=== PATIENT | male | born 1960 | race Caucasian/White ===

== ENCOUNTER → 2019-04-15 15:52 | Outpatient (BNVA) | payer BC, OTHER, SELFPAY | PROVIDERS: Family Provider Family Medicine; PCP Family Medicine; Visit Provider Family Medicine | DX: I10 Essential (primary) hypertension (principal); E11.9 Type 2 diabetes mellitus without complications | CPT/HCPCS: 83036 ==

== ENCOUNTER → 2019-11-21 11:23 | Outpatient (BNVA) | payer OTHER, BC, SELFPAY | PROVIDERS: Family Provider Family Medicine; PCP Family Medicine; Visit Provider Nurse Practitioner | DX: S42.212D Unspecified displaced fracture of surgical neck of left humerus, subsequent encounter for fracture with routine healing (principal); X58.XXXD Exposure to other specified factors, subsequent encounter | CPT/HCPCS: 73030 ==

== ENCOUNTER 2019-11-21 12:47 | Outpatient (CLI) | payer OTHER, SELFPAY ==
--- NOTE | 2019-11-21 12:50 | XR_ITS ---
WS: [id number] EXAM: LEFT SHOULDER: 3 VIEWS DATE OF EXAMINATION: 11/21/2019, 1259 COMPARISON: Left shoulder films exam from earlier on the same date. HISTORY: 59 years old with fracture follow-up. FINDINGS: Again demonstrated are changes of open reduction internal fixation of a left humeral surgical neck fr acture. Lateral side plate and multiple screws are demonstrated. The fracture appears healed. Bony fr agments are seen along the inferior aspect of the glenohumeral joint felt to represent changes relate d to a prior inferior glenoid rim fracture. Slight arthritis in the AC joint. No dislocation. No soft tissue abnormality is demonstrated. XR/XR shoulder LT min 2V* [id number] IMPRESSION: Healed left humeral surgical neck fracture. Bony fragments below the inferior g lenoid suggesting a bony fracture of the inferior glenoid rim. Arthritis in the AC joint.
== END 2019-11-21 12:48 | disposition home or self-care (01) ==
LOC: RAD 12:49
PROVIDERS: PCP Family Medicine; Visit Provider Nurse Practitioner
DX: M25.512 Pain in left shoulder (principal); M19.012 Primary osteoarthritis, left shoulder
CPT/HCPCS: 73030

== ENCOUNTER → 2019-12-16 15:00 | Outpatient (BNVA) | payer BC, OTHER, SELFPAY | PROVIDERS: PCP Family Medicine; Visit Provider Nurse Practitioner Family | DX: I10 Essential (primary) hypertension (principal); E11.9 Type 2 diabetes mellitus without complications; Z68.36 Body mass index [BMI] 36.0-36.9, adult; R03.0 Elevated blood-pressure reading, without diagnosis of hypertension | CPT/HCPCS: 80053; 80061; 83036; 84439; 84443; 85025 ==

== ENCOUNTER → 2020-06-18 15:44 | Outpatient (BNVA) | payer BC, OTHER, SELFPAY | PROVIDERS: PCP Family Medicine; Visit Provider Nurse Practitioner Family | DX: R30.0 Dysuria (principal); R10.9 Unspecified abdominal pain | CPT/HCPCS: 81000 ==

== ENCOUNTER 2020-07-05 13:53 | Outpatient (CLI) | payer BC, OTHER, SELFPAY ==
--- NOTE | 2020-07-05 14:45 | CT_ITS ---
WS: [id number] CT ABDOMEN PELVIS TECHNIQUE: Noncontrast CT of the abdomen and pelvis with coronal and sagittal reformatted images. CLINICAL INFORMATION: R10.9 - Unspecified abdominal pain COMPARISON: None. DLP: 1492.[address] scans at [facility] use at least one of these dose optimization techniques: automat ed exposure control; mA and/or kV adjustment per patient size (includes targeted exams where dose is matched to clinical indication); or iterative reconstruction. FINDINGS: Noncontrast liver is unremarkable. Noncontrast spleen is normal. Normal pancreas. Normal GE junction. Adrenal glands are normal. No hydronephrosis in either kidney. No obstructing renal or ureteral calcu li. Calcified prostate measuring 3.9 x 4.2 CM. Normal caliber abdominal aorta. Tiny fat-containing um bilical hernia. Normal Sigmoid colon. No evidence of high-grade small or large bowel obstruction. Lung bases are well aerated. Lumbar curve. CT/CT kidney stone 29594 IMPRESSION: 1. No hydronephrosis in either kidney. No obstructing renal or ureteral calcul i. 2. No abdominal or pelvic lymphadenopathy. 3. Tiny fat-containing umbilical hernia. 4. Calcified enlarged prostate measuring 4.2 x 3.9 cm. Recommend correlation P SA.
== END 2020-07-05 13:54 | disposition home or self-care (01) ==
PROVIDERS: PCP Family Medicine; Visit Provider Nurse Practitioner Family
DX: R10.9 Unspecified abdominal pain (principal); R31.9 Hematuria, unspecified; K42.9 Umbilical hernia without obstruction or gangrene; N40.0 Benign prostatic hyperplasia without lower urinary tract symptoms
CPT/HCPCS: 74176; 81000

== ENCOUNTER → 2020-07-11 15:46 | Outpatient (BNVA) | payer BC, OTHER, SELFPAY | PROVIDERS: PCP Family Medicine; Visit Provider Nurse Practitioner Family | DX: R10.9 Unspecified abdominal pain (principal); R31.9 Hematuria, unspecified; N40.0 Benign prostatic hyperplasia without lower urinary tract symptoms | CPT/HCPCS: 82565; 84153; 84520 ==

== ENCOUNTER → 2020-09-11 09:50 | Outpatient (BNVA) | payer BC, OTHER, SELFPAY | PROVIDERS: PCP Family Medicine; Visit Provider Nurse Practitioner Family | DX: E11.9 Type 2 diabetes mellitus without complications (principal) | CPT/HCPCS: 83036 ==

== ENCOUNTER → 2020-12-14 11:26 | Outpatient (BNVA) | payer BC, OTHER, SELFPAY | PROVIDERS: PCP Family Medicine; Visit Provider Nurse Practitioner Family | DX: E11.9 Type 2 diabetes mellitus without complications (principal); I10 Essential (primary) hypertension; R10.9 Unspecified abdominal pain; R31.9 Hematuria, unspecified | CPT/HCPCS: 80053; 80061; 81000; 83036; 84439; 84443; 85025 ==

== ENCOUNTER → 2021-01-15 09:40 | Outpatient (BNVA) | payer BC, OTHER, SELFPAY | PROVIDERS: PCP Family Medicine; Visit Provider Urology | DX: R31.9 Hematuria, unspecified (principal) | CPT/HCPCS: 81003 ==

== ENCOUNTER → 2021-04-20 15:10 | Outpatient (BNVA) | payer BC, OTHER, SELFPAY | PROVIDERS: PCP Family Medicine; Visit Provider Nurse Practitioner | DX: Z20.822 Contact with and (suspected) exposure to COVID-19 (principal) | CPT/HCPCS: 87635 ==

== ENCOUNTER → 2021-04-24 10:52 | Outpatient (BNVA) | payer BC, OTHER, SELFPAY | PROVIDERS: PCP Family Medicine; Visit Provider Nurse Practitioner | DX: J20.9 Acute bronchitis, unspecified (principal); Z20.822 Contact with and (suspected) exposure to COVID-19 | CPT/HCPCS: 87635 ==

== ENCOUNTER → 2022-02-12 16:41 | Outpatient (BNVA) | payer BC, OTHER, SELFPAY | PROVIDERS: PCP Family Medicine; Visit Provider Nurse Practitioner Family | DX: R60.9 Edema, unspecified (principal); E11.9 Type 2 diabetes mellitus without complications | CPT/HCPCS: 80053; 83036 ==

== ENCOUNTER → 2022-03-12 16:28 | Outpatient (BNVA) | payer BC, OTHER, SELFPAY | PROVIDERS: PCP Family Medicine; Visit Provider Nurse Practitioner Family | DX: Z79.899 Other long term (current) drug therapy (principal); M25.561 Pain in right knee; G89.29 Other chronic pain | CPT/HCPCS: 80048 ==

== ENCOUNTER → 2022-04-01 15:45 | Outpatient (BNVA) | payer BC, OTHER, SELFPAY | PROVIDERS: PCP Family Medicine; Visit Provider Nurse Practitioner Family | DX: R79.89 Other specified abnormal findings of blood chemistry (principal) | CPT/HCPCS: 80053 ==

== ENCOUNTER → 2022-04-11 14:58 | Outpatient (BNVA) | payer BC, OTHER, SELFPAY | PROVIDERS: PCP Family Medicine; Referring Provider Nurse Practitioner Family; Visit Provider Student in an Organized Health Care Education/Training Program | DX: M17.11 Unilateral primary osteoarthritis, right knee (principal) | CPT/HCPCS: 73560; 73565 ==

== ENCOUNTER → 2022-04-18 15:00 | Outpatient (BNVA) | payer BC, OTHER, SELFPAY | PROVIDERS: PCP Family Medicine; Visit Provider Nurse Practitioner Family | DX: R79.9 Abnormal finding of blood chemistry, unspecified (principal) | CPT/HCPCS: 80048 ==

== ENCOUNTER → 2022-05-09 11:38 | Outpatient (BNVA) | payer BC, OTHER, SELFPAY | PROVIDERS: PCP Family Medicine; Visit Provider Nurse Practitioner Family | DX: I10 Essential (primary) hypertension (principal); E11.9 Type 2 diabetes mellitus without complications; R05.9 Cough, unspecified; Z68.35 Body mass index [BMI] 35.0-35.9, adult | CPT/HCPCS: 80053; 80061; 83036; 84443 ==

== ENCOUNTER → 2022-08-15 08:54 | Outpatient (BNVA) | payer BC, OTHER, SELFPAY | PROVIDERS: PCP Family Medicine; Visit Provider Nurse Practitioner Family | DX: E11.9 Type 2 diabetes mellitus without complications (principal); Z68.33 Body mass index [BMI] 33.0-33.9, adult; I10 Essential (primary) hypertension | CPT/HCPCS: 83036 ==

== ENCOUNTER → 2022-11-14 09:38 | Outpatient (BNVA) | payer BC, OTHER, SELFPAY | PROVIDERS: PCP Nurse Practitioner Family; Visit Provider Nurse Practitioner Family | DX: E11.9 Type 2 diabetes mellitus without complications (principal); I10 Essential (primary) hypertension; E78.00 Pure hypercholesterolemia, unspecified | CPT/HCPCS: 80053; 80061; 83036 ==

== ENCOUNTER → 2023-02-13 08:43 | Outpatient (BNVA) | payer BC, OTHER, SELFPAY | PROVIDERS: PCP Nurse Practitioner Family; Visit Provider Nurse Practitioner Family | DX: E11.9 Type 2 diabetes mellitus without complications (principal) | CPT/HCPCS: 83036 ==

== ENCOUNTER → 2023-05-15 09:54 | Outpatient (BNVA) | payer BC, OTHER, SELFPAY | PROVIDERS: PCP Nurse Practitioner Family; Visit Provider Nurse Practitioner Family | DX: I10 Essential (primary) hypertension (principal); E11.9 Type 2 diabetes mellitus without complications | CPT/HCPCS: 80053; 80061; 82043; 83036 ==

== ENCOUNTER → 2023-08-07 09:32 | Outpatient (BNVA) | payer BC, OTHER, SELFPAY | PROVIDERS: PCP Nurse Practitioner Family; Visit Provider Nurse Practitioner Family | DX: E11.9 Type 2 diabetes mellitus without complications (principal) | CPT/HCPCS: 83036 ==

== ENCOUNTER → 2023-11-13 09:24 | Outpatient (BNVA) | payer BC, SELFPAY | PROVIDERS: PCP Nurse Practitioner Family; Visit Provider Nurse Practitioner Family | DX: E11.9 Type 2 diabetes mellitus without complications (principal); I10 Essential (primary) hypertension | CPT/HCPCS: 80053; 80061 ==

== ENCOUNTER → 2023-12-15 14:33 | Outpatient (BNVA) | payer BC, SELFPAY | PROVIDERS: PCP Nurse Practitioner Family; Visit Provider Nurse Practitioner Family | DX: R68.83 Chills (without fever) (principal) | CPT/HCPCS: 87400; 87426 ==

== ENCOUNTER → 2024-02-19 09:18 | Outpatient (BNVA) | payer BC, SELFPAY | PROVIDERS: PCP Nurse Practitioner Family; Visit Provider Nurse Practitioner Family | DX: E11.9 Type 2 diabetes mellitus without complications (principal) | CPT/HCPCS: 83036 ==

== ENCOUNTER → 2024-05-20 09:00 | Outpatient (BNVA) | payer BC, SELFPAY | PROVIDERS: PCP Nurse Practitioner Family; Visit Provider Nurse Practitioner Family | DX: E78.00 Pure hypercholesterolemia, unspecified (principal); E11.9 Type 2 diabetes mellitus without complications | CPT/HCPCS: 80053; 80061; 82043; 83036 ==

== ENCOUNTER → 2024-08-19 08:55 | Outpatient (BNVA) | payer BC, SELFPAY | PROVIDERS: PCP Nurse Practitioner Family; Visit Provider Nurse Practitioner Family | DX: E11.9 Type 2 diabetes mellitus without complications (principal) | CPT/HCPCS: 83036 ==

== ENCOUNTER → 2024-11-18 09:00 | Outpatient (BNVA) | payer BC, SELFPAY | PROVIDERS: PCP Nurse Practitioner Family; Visit Provider Nurse Practitioner Family | DX: E11.9 Type 2 diabetes mellitus without complications (principal); E78.00 Pure hypercholesterolemia, unspecified | CPT/HCPCS: 80053; 80061; 83036 ==

== ENCOUNTER 2024-12-12 11:28 | Emergency (ER) | payer BC, SELFPAY ==
[2024-12-12 11:36] VITALS: BP 131/72; PULSE 99; RESP 18; TEMP 36.6; O2SAT 99
--- OUTSIDE RECORDS SUMMARY | 2024-12-12 11:37 | XMS_ITS | Encounter Summary ---
Author Organization [facility] Address [address] [place] [address] Care Team Providers Care Tool Adjuster Name Role Phone Unavailable Primary Care Provider Unavailabl e Encounter Details Date Type Department Care Team (Latest Contact Info) Description 06/12/2004 Outpatient Historical [facility]- 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
--- OUTSIDE RECORDS SUMMARY | 2024-12-12 11:37 | XMS_ITS | Clinical Summary ---
Author Organization [facility] Address [address] 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
--- OUTSIDE RECORDS SUMMARY | 2024-12-12 11:37 | XMS_ITS | Encounter Summary ---
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
--- OUTSIDE RECORDS SUMMARY | 2024-12-12 11:37 | XMS_ITS | Encounter Summary ---
Author Organization [facility] Address [address] [place] [address] Care Team Providers Care Receptionist/Telephone Operator Name Role Phone Unavailable Primary Care Provider Unavailabl e Encounter Details Date Type Department Care Team (Latest Contact Info) Description 03/18/2004 Outpatient Historical [facility] Orthopedics- 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
--- OUTSIDE RECORDS SUMMARY | 2024-12-12 11:37 | XMS_ITS | Encounter Summary ---
Author Organization [facility] Address [address] [place] [address] Care Team Providers Care Rf Technician Name Role Phone Unavailable Primary Care Provider Unavailabl e Encounter Details Date Type Department Care Team (Latest Contact Info) Description 04/08/2004 Outpatient Historical [facility] Orthopedics- 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
--- OUTSIDE RECORDS SUMMARY | 2024-12-12 11:37 | XMS_ITS | Encounter Summary ---
Author Organization [facility] Address [address] [place] [address] Care Team Providers Care Executive Compensation Analyst Name Role Phone Unavailable Primary Care Provider Unavailabl e Encounter Details Date Type Department Care Team (Latest Contact Info) Description 05/09/2004 Outpatient Historical [facility] Orthoped[facility]- [address] [place] [phone] Ty Tejeda MD NO ADDRESS ON FILE FX ANKLE NOS-CLOSED (Primary Dx) Social History Tobacco Use Types Packs/Day Years Used Date Smoking Tobacco: Never Assessed Sex and Gender Information Value Date Recorded Sex Assigned at Not on file Legal Sex Male 3:[address] Gender Identity Not on file Sexual Orientation Not on file documented as of this encounter Plan of Treatment Not on file documented as of this encounter Visit Diagnoses Diagnosis Unspecified closed fracture of ankle- Primary documented in this encounter
--- NOTE | 2024-12-12 11:41 | W.ED.GENADLT ---
HPI - General Adult General: Chief complaint: General Medical Stated complaint: high blood sugar Time Seen by Provider: 12/12/24 11:40 Source: patient Mode of arrival: ambulatory Limitations: no limitations History of Present Illness: Patient is a nice 64-year-old male who is a known diabetic here for stating his glucometer read high when he checked his blood sugars this morning. He states his cutoff is 600. Patient states he has never had blood sugars that high before and states that the highest, in the mornings, it will be in the 140s?160s. Upon arrival here-blood sugar was checked in triage and reading 116. Patient does feel like his glucometer might be old/ and possibly malfunctioning. He states it is over 8 years old. He has plans on getting a new one when he gets discharged today. Patient states he feels great and has no physical complaints at this time. Related Data Home Medications ?Medication ?Instructions ?Recorded ?Confirmed acetaminophen 325 mg capsule 325 mg PO ONCE PRN 03/31/19 11/18/24 (Tylenol) ascorbic acid (vitamin C) 500 mg 500 mg PO DAILY 03/31/19 11/18/24 capsule aspirin 81 mg tablet,delayed 81 mg PO QDAY 03/31/19 11/18/24 release (Adult Aspirin Regimen) cinnamon bark 500 mg capsule 500 mg PO QDAY 03/31/19 11/18/24 (Cinnamon) cyanocobalamin (vitamin B-12) 1,000 mcg PO QDAY 03/31/19 11/18/24 1,000 mcg tablet Previous Rx's ?Medication ?Instructions ?Recorded pen needle, diabetic 31 gauge x #100 ea 11/14/2203/12 (Pentips Pen Needle) lisinopril 20 mg tablet See Rx Instructions .Route 08/19/24 .COMPLEX #90 tabs furosemide 20 mg tablet See Rx Instructions .Route 09/26/24 .COMPLEX #90 tabs metformin 1,000 mg tablet See Rx Instructions .Route 09/30/24 .COMPLEX #180 tabs dapagliflozin propanediol 10 mg See Rx Instructions .Route 10/18/24 tablet (Farxiga) .COMPLEX #90 tabs atorvastatin 40 mg tablet See Rx Instructions .Route 11/18/24 .COMPLEX #90 tabs semaglutide 1 mg/dose (4 mg/3 mL) 1 mg (0.75 mL) SUBCUT .weekly #3 mL 11/22/24 subcutaneous pen injector (Ozempic) Allergies Allergy/AdvReac Type Severity Reaction Status Date / Time No Known Allergies Allergy Verified 11/18/24 08:57 [facility] ED PFSH: Medical History (Updated 12/12/24 @ 12:46 by MELINDA Ware) Right knee DJD Microscopic hematuria Hypertension Diabetes Surgical History History of hand surgery H/O shoulder surgery Family History Mother , at age 67 Diabetes Stroke Father , at age 70 Cancer lung Social History Smoking and tobacco/nicotine status: never used tobacco/nicotine Alcohol intake: current Alcohol intake frequency: holidays/special occasions only Marital status: Single Current occupational status: employed Current occupation: [employer] Vital Signs: Vital signs: Vital Signs Temperature 97.9 F 12/12/24 11:36 Pulse Rate 95 12/12/24 12:59 Respiratory Rate 16 12/12/24 12:59 Blood Pressure 118/85 12/12/24 12:59 Pulse Oximetry 98 12/12/24 12:59 Oxygen Delivery Me thod Room Air 12/12/24 11:49 MDM - General Adult Medical Decision Making Patient here after his glucometer read high this morning. He states that has never done that before. Blood sugars upon arrival were 116. His blood work is unremarkable. Blood glucose on his chemistry is 129. Patient is completely asymptomatic. He states his glucometer is over 8 years old. Has plans to purchase one at time of discharge. Return to ED precautions discussed. Medical Records I reviewed the patient's medical records. Lab Data I reviewed the patient's lab results. 12/12/24 12:10 12/12/24 12:10 Laboratory Results WBC 10.00 10^3/uL (3.29-11.43) 12/12/24 12:10 RBC 4.25 10^6/uL (3.85-5.65) 12/12/24 12:10 Hgb 12.80 g/dL (11.27-16.99) 12/12/24 12:10 Hct 40.2 % (37-53) 12/12/24 12:10 MCV 94.6 fl (82-101) 12/12/24 12:10 MCH 30.1 pg (27-33) 12/12/24 12:10 MCHC 31.8 g/dL (30-55) 12/12/24 12:10 RDW 15.4 % (12.1-15.1) H 12/12/24 12:10 Plt Count 316 10^3/cmm (157-399) 12/12/24 12:10 MPV 8.9 fL (7.4-10.4) 12/12/24 12:10 Neut % (Auto) 66.4 % 12/12/24 12:10 Lymph % (Auto) 25.3 % 12/12/24 12:10 [place] % (Auto) 5.4 % 12/12/24 12:10 Eos % (Auto) 1.7 % 12/12/24 12:10 Baso % (Auto) 0.9 % 12/12/24 12:10 Neut # (Auto) 6.64 10^3/uL (1.8-7.7) 12/12/24 12:10 Lymph # (Auto) 2.5 10^3/uL (0.8-4.8) 12/12/24 12:10 [place] # (Auto) 0.5 10^3/uL (0.2-0.9) 12/12/24 12:10 Eos # (Auto) 0.2 10^3/uL (0.0-0.8) 12/12/24 12:10 Baso # (Auto) 0.1 10^3/uL (0.0-0.1) 12/12/24 12:10 Nucleated RBC % (auto) 0 % 12/12/24 12:10 Nucleated RBCs # 0.0 /100WBC 12/12/24 12:10 Sodium 138 mmol/L (136-145) 12/12/24 12:10 Potassium 5.2 mmol/L (3.5-5.1) H 12/12/24 12:10 Chloride 99 mmol/L (98-107) 12/12/24 12:10 Carbon Dioxide 25 mmol/L (22-29) 12/12/24 12:10 Anion Gap 19.2 (5-19) H 12/12/24 12:10 BUN 33 mg/dL (8-23) H 12/12/24 12:10 Creatinine 1.0 mg/dL (0.7-1.2) 12/12/24 12:10 GFR Calculation 75.2 mL/min (90-130) L 12/12/24 12:10 Glucose 129 mg/dL (65-115) H 12/12/24 12:10 POC Glucose 116 mg/dL (70-110) H 12/12/24 11:36 Calculated Osmolality 295 mOsm/kg (285-295) 12/12/24 12:10 Calcium 9.7 mg/dL (8.5-10.5) 12/12/24 12:10 Total Bilirubin 0.7 mg/dL (0.15-1.2) 12/12/24 12:10 AST 18 U/L (0-40) 12/12/24 12:10 ALT 16 U/L (0-41) 12/12/24 12:10 Alkaline Phosphatase 87 U/L (40-130) 12/12/24 12:10 Total Protein 7.8 g/dL (6.6-8.7) 12/12/24 12:10 Albumin 4.6 g/dL (3.5-5.2) 12/12/24 12:10 Globulin 3.2 g/dL (1.3-4.6) 12/12/24 12:10 Urine Color Yellow (Yellow) 12/12/24 11:42 Urine Appearance Clear (CLEAR) 12/12/24 11:42 Urine pH 5.0 (5-7) 12/12/24 11:42 Ur Specific [employer] 1.015 (1.005-1.030) 12/12/24 11:42 Urine Protein Negative (Negative) 12/12/24 11:42 Urine Glucose (UA) 1+ (Normal) H 12/12/24 11:42 Urine Ketones Negative (Negative) 12/12/24 11:42 Urine Blood Negative (Negative) 12/12/24 11:42 Urine Nitrate Negative (Negative) 12/12/24 11:42 Urine Bilirubin Negative (Negative) 12/12/24 11:42 Urine Urobilinogen 0.2 mg/dL (Negative) 12/12/24 11:42 Ur Leukocyte Esterase Negative (Negative) 12/12/24 11:42 Amorphous Sediment Not Reportable 12/12/24 11:42 Serum Ketones Negative (Negative) 12/12/24 12:10 No radiology studies performed this visit Discharge Plan Discharge Patient Disposition: Home Clinical Impression: Diabetes Qualifiers: Diabetes mellitus type: type 2 Diabetes mellitus fpc insulin use: without exterminator helper use Diabetes mellitus complication status: without complication Qualified Code(s): E11.9 - Type 2 diabetes mellitus without complications Condition: Stable Prescriptions: No Action aspirin [Adult Aspirin Regimen] 81 mg tablet,delayed release (DR/EC) 81 mg PO QDAY cyanocobalamin (vitamin B-12) 1,000 mcg tablet 1,000 mcg PO QDAY cinnamon bark [Cinnamon] 500 mg capsule 500 mg PO QDAY ascorbic acid (vitamin C) 500 mg capsule 500 mg PO DAILY acetaminophen [Tylenol] 325 mg capsule 325 mg PO ONCE PRN lisinopril 20 mg tablet See Rx Instructions .ROUTE .COMPLEX Qty: 90 3RF Dose Instruction: TAKE 1 TABLET BY MOUTH ONCE DAILY AT BEDTIME FOR HIGH BLOOD PRESSURE Rx Instructions: TAKE 1 TABLET BY MOUTH ONCE DAILY AT BEDTIME FOR HIGH BLOOD PRESSURE (DME) pen needle, diabetic [Pentips Pen Needle] 31 gauge x 1/4 needle See Rx Instructions .ROUTE .COMPLEX Qty: 100 3RF Dose Instruction: USE DIRECTED Rx Instructions: USE DIRECTED atorvastatin 40 mg tablet See Rx Instructions .ROUTE .COMPLEX Qty: 90 3RF Dose Instruction: TAKE ONE TABLET BY MOUTH DAILY Rx Instructions: TAKE ONE TABLET BY MOUTH DAILY furosemide 20 mg tablet See Rx Instructions .ROUTE .COMPLEX Qty: 90 0RF Dose Instruction: TAKE ONE TABLET BY MOUTH EVERY MORNING Rx Instructions: TAKE ONE TABLET BY MOUTH EVERY MORNING metformin 1,000 mg tablet See Rx Instructions .ROUTE .COMPLEX Qty: 180 0RF Dose Instruction: Take 1 tablet by mouth twice daily Rx Instructions: Take 1 tablet by mouth twice daily Farxiga 10 mg tablet See Rx Instructions .ROUTE .COMPLEX Qty: 90 1RF Dose Instruction: TAKE ONE TABLET BY MOUTH ONCE DAILY EVERY MORNING Rx Instructions: TAKE ONE TABLET BY MOUTH ONCE DAILY EVERY MORNING Ozempic 1 mg/dose (4 mg/3 mL) pen injector 1 mg SUBCUT .weekly Qty: 3 0RF Discharge Orders: Discharge ED (Routine); Ordered 12/12/24 Ordered By: Marleni Salamanca Referrals: Carmen Sánchez NP [Primary Care Provider, Family Practice] Patient Instructions: Patient Portal & Jeremy Instructions Activity Restrictions/Additional Instructions: Your blood work here was unremarkable. Blood sugars were 116 on your [id number] glucose upon arrival and is 129 on your chemistry panel that was obtained. I suspect that your glucometer was malfunctioning this morning. You have indicated you plan on purchasing a new glucometer at time of discharge. You may return to the emergency department for any further concerns you may have. Print Language: Hungarian Coding Level of Care Code ED Concert Pianist for Martin Giang
[2024-12-12 11:49] VITALS: BP 135/74; O2SAT 97
[2024-12-12 12:13] LABS: Add Urine Microscopic? NO
[2024-12-12 12:17] LABS: Hematocrit 40.2 % (37-53); Hemoglobin 12.80 g/dL (11.27-16.99); Mean Corpuscular HGB Conc 31.8 g/dL (30-55); Mean Corpuscular Hemoglobin 30.1 pg (27-33); Mean Corpuscular Volume 94.6 fl (82-101); Nucleated Red Blood Cells % 0 %; Platelet Count 316 10^3/cmm (157-399); Red Blood Count 4.25 10^6/uL (3.85-5.65); White Blood Count 10.00 10^3/uL (3.29-11.43)
[2024-12-12 12:17] LABS: Glucose Urine UA 1+ (Normal); Nitrate Urine Negative (Negative); Specific Gravity, Urine 1.015 (1.005-1.030)
[2024-12-12 12:23] LABS: Charge for UA Resulting for Rev
[2024-12-12 12:38] LABS: Alanine Aminotransferase 16 U/L (0-41); Albumin Level 4.6 g/dL (3.5-5.2); Alkaline Phosphatase 87 U/L (40-130); Anion Gap 19.2 (5-19); Aspartate Amino Transferase 18 U/L (0-40); Blood Urea Nitrogen 33 mg/dL (8-23); Calcium 9.7 mg/dL (8.5-10.5); Carbon Dioxide 25 mmol/L (22-29); Chloride 99 mmol/L (98-107); Creatinine Clr Calc Pharmacy 93.7701; Globulin 3.2 g/dL (1.3-4.6); Glucose 129 mg/dL (65-115); Osmolality Calculated 295 mOsm/kg (285-295); Potassium 5.2 mmol/L (3.5-5.1); Sodium 138 mmol/L (136-145); Total Protein 7.8 g/dL (6.6-8.7)
[2024-12-12 12:54] LABS: Ketone (Acetest) Serum Negative (Negative)
[2024-12-12 12:59] VITALS: BP 118/85; PULSE 95; RESP 16; O2SAT 98
== END 2024-12-12 13:00 | disposition home or self-care (01) ==
PROVIDERS: Emergency Provider Physician Assistant; PCP Nurse Practitioner Family
DX: E11.9 Type 2 diabetes mellitus without complications (principal); Z79.82 Long term (current) use of aspirin; Z79.84 Long term (current) use of oral hypoglycemic drugs; I10 Essential (primary) hypertension
CPT/HCPCS: 36415; 36416; 80053; 81003; 82009; 82962; 85025; 99283

== ENCOUNTER → 2025-02-17 09:09 | Outpatient (BNVA) | payer BC, SELFPAY | PROVIDERS: PCP Nurse Practitioner Family; Visit Provider Nurse Practitioner Family | DX: E11.9 Type 2 diabetes mellitus without complications (principal) | CPT/HCPCS: 83036 ==